=== PATIENT | female | born 1955 | race Caucasian/White ===

== ENCOUNTER → 2021-10-07 16:26 | Outpatient (CLI) | payer MEDICARE, SELFPAY ==
--- NOTE | ~2021-10-07 | MM_ITS ---
EXAMINATION: MM screening mirian BI w shandra HISTORY: Screening TECHNIQUE: Craniocaudal and mediolateral oblique 3-D tomosynthesis images were obtained and synthetic 2-D images were generated. CAD analysis was submitted and interpreted. COMPARISON: Comparison to multiple prior studies sequentially, with oldest reviewed study dated 04/24. BREAST PARENCHYMAL COMPOSITION: There are scattered areas of fibroglandular density. FINDINGS: There is no evidence of suspicious mass, calcification, or architectural distortion to sugg est malignancy in either breast. There has been no suspicious interval change. IMPRESSION: 1. No mammographic evidence of malignancy. 2. Recommend routine screening mammography in one year. BI-RADS Category 1: Negative Reviewed, dictated and finalized at location A.
== END ==
PROVIDERS: PCP Pediatrics; Visit Provider Obstetrics & Gynecology Gynecology
DX: Z12.31 Encounter for screening mammogram for malignant neoplasm of breast (principal)
CPT/HCPCS: 77063; 77067

== ENCOUNTER → 2022-06-02 09:22 | Outpatient (CLI) | payer MEDICARE, SELFPAY ==
--- NOTE | ~2022-06-02 | MMUS_ITS ---
EXAMINATION: MM diagnostic mirian RT w shandra, US breast RT complete HISTORY: Pain inferior to right nipple/areola TECHNIQUE: ML, MLO and CC 3-D tomosynthesis images of the right breast were performed and synthetic 2 -D images were generated. CAD analysis was submitted and interpreted. High resolution complete right breast ultrasound including all 4 quadrants and subareolar area was performed. COMPARISON: 10/07/2021, 02/22/2019 bilateral screening mammogram examinations BREAST PARENCHYMAL COMPOSITION: There are scattered areas of fibroglandular density. FINDINGS: MAMMOGRAPHIC FINDINGS: There is generalized increased prominence of fibroglandular stroma since the prior to screening mammo gram examinations. No suspicious mass or architectural distortion, malignant calcification, skin thickening or retractio n or significant new or developing density is detected. ULTRASOUND: Right breast subareolar area: 3.4 x 5 mm cyst No suspicious mass or shadowing of the right breast is detected. IMPRESSION: 1. Benign finding 2. Routine annual mammographic screening is recommended BI-RADS Category 2: Benign finding(s). Reviewed, dictated and finalized at location A. 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 Benign finding 2. Routine annual mammographic screening is recommended BI-RADS Category 2: Benign finding(s).
== END ==
PROVIDERS: PCP Advanced Practice Midwife; Visit Provider Advanced Practice Midwife
DX: N64.4 Mastodynia (principal)
CPT/HCPCS: 76641; 77061; 77065; G0279

== ENCOUNTER → 2023-03-08 12:20 | Outpatient (CLI) | payer MEDICARE, SELFPAY ==
--- NOTE | ~2023-03-08 | MM_ITS ---
EXAMINATION: MM screening mirian BI w shandra HISTORY: Screening mammogram TECHNIQUE: Craniocaudal and mediolateral oblique 3-D tomosynthesis images were obtained and synthetic 2-D images were generated. CAD analysis was submitted and interpreted. COMPARISON: June 02, 2022 diagnostic right mammogram and complete right breast ultrasound 09/29/2021, 02/22/2019 bilateral screening mammogram examinations BREAST PARENCHYMAL COMPOSITION: There are scattered areas of fibroglandular density. FINDINGS: Impression 5 mm low-density circumscribed opacity is suggested anteriorly in the upper mid right abdirizak st in the superior subareolar area. Diagnostic right mammogram and right breast ultrasound examinatio n are recommended. Otherwise there is no evidence of suspicious mass, calcification, or architectural distortion to sugg est malignancy in either breast. There has been no other suspicious interval change. IMPRESSION: 1. New 5 mm circumscribed opacity in the upper anterior mid right breast 2. Diagnostic right mammogram and right breast ultrasound examination are recommended. BI-RADS Category 0: Incomplete: Needs additional imaging evaluation. Reviewed, dictated and finalized at location A. STANT LIBRARIAN Impression 5 mm low-density circumscribed opacity is suggested anteriorly in th e upper mid right breast in the superior subareolar area. Diagnostic right mamm ogram and right breast ultrasound examination are recommended. Otherwise there is no evidence of suspicious mass, calcification, or architectu ral distortion to suggest malignancy in either breast. There has been no other suspicious interval change. IMPRESSION: 1. New 5 mm circumscribed opacity in the upper anterior mid right breast 2. Diagnostic right mammogram and right breast ultrasound examination are recom mended. BI-RADS Category 0: Incomplete: Needs additional imaging evaluation.
--- NOTE | ~2023-03-08 | DEXA_ITS ---
Bone Density Report Name: PAUL LYNN Age: 68 Sex: Female Ethnicity: White Date of : 1955 Indication: osteopenia; height loss; hysterectomy; postmenopausal Referring Provider: SUSAN BRIDGES Study: Bone densitometry was performed. Exam Date: March 08, 2023 Accession number: [id number] Bone Density: Region BMD T-score Z-score Classification AP Spine (L1-L4) 0.848 -1.8 0.1 Osteopenia Femoral Neck (Left) 0.672 -1.6 0.0 Osteopenia Total Hip (Left) 0.783 -1.3 0.0 Osteopenia Femoral Neck (Right) 0.748 -0.9 0.7 Normal Total Hip (Right) 0.798 -1.2 0.2 Osteopenia Total Hip Mean 0.791 -1.3 0.1 Osteopenia World Health Organization criteria for BMD impression classify patients as: Normal (T-score at or above -1.0), Osteopenia (T-score between -1.0 and -2.5), or Osteoporosis (T-score at or below -2.5). 10-year Fracture Risk(1): Major Osteoporotic Fracture 9.3% Hip Fracture 1.2% Reported Risk Factors: [place] (), Neck BMD=0.672, BMI=30.8 (1) FRAX(R) Version 3.08. Fracture probability calculated for an untreated patient. Fracture probability may be lower if the patient has received treatment. Previous Exams: Region Exam Age BMD T-score BMD Change BMD Change Date g/cm2 vs Baseline vs Previous AP Spine(L1-L4) 03/08/2023 68 0.848 -1.8 -0.075* 0.024* 02/22/2019 64 0.824 -2.0 -0.099* -0.102* 02/24/2012 57 0.927 -1.1 0.004 0.004 10/14/2009 54 0.923 -1.1 Total Hip(Left) 03/08/2023 68 0.783 -1.3 -0.013 0.005 02/22/2019 64 0.777 -1.3 -0.018 0.017 02/24/2012 57 0.761 -1.5 -0.035* -0.035* 10/14/2009 54 0.796 -1.2 Total Hip(Right) 03/08/2023 68 0.798 -1.2 -0.021 0.001 02/22/2019 64 0.797 -1.2 -0.022 0.003 02/24/2012 57 0.794 -1.2 -0.025 -0.025 10/14/2009 54 0.819 -1.0 *Denotes significance at 95% confidence level, LSC for AP Spine = 0.022 g/cm2, LSC for Total Hip = 0.027 g/cm2 Clinical Information Provided by Patient: Has used the following medications: Calcium, MTV, vit D included in calcium Has the following medical conditions: Hysterectomy Patient maximum height was 68 Menopause Age: 56 No regular weight bearing exercise Drinks caffeinated beverages Onset of menses at age 16 Number of children 2 I
== END ==
PROVIDERS: PCP Obstetrics & Gynecology Gynecology; Visit Provider Obstetrics & Gynecology Gynecology
DX: Z12.31 Encounter for screening mammogram for malignant neoplasm of breast (principal); Z78.0 Asymptomatic menopausal state; R92.8 Other abnormal and inconclusive findings on diagnostic imaging of breast; M85.88 Other specified disorders of bone density and structure, other site; M85.852 Other specified disorders of bone density and structure, left thigh; M85.851 Other specified disorders of bone density and structure, right thigh
CPT/HCPCS: 77063; 77067; 77080

== ENCOUNTER → 2023-03-31 09:02 | Outpatient (CLI) | payer MEDICARE, SELFPAY ==
--- NOTE | ~2023-03-31 | MMUS_ITS ---
EXAMINATION: MM diagnostic mirian RT w shandra, US breast RT limited HISTORY: New 5 mm circumscribed opacity in upper anterior mid right breast reported on 03/08/2023 scr eening mammogram examination TECHNIQUE: Additional 3-D tomosynthesis images of the right breast were performed and synthetic 2-D i mages were generated. CAD analysis was submitted and interpreted. High resolution targeted right suba reolar breast ultrasound was performed. COMPARISON: 03/08/2023 bilateral screening mammogram 06/02/2022 diagnostic right mammogram and complete right breast ultrasound examination 10/07/2021 bilateral screening mammogram FINDINGS: MAMMOGRAPHIC FINDINGS: An approximately 5 mm circumscribed opacity is noted in the superomedial subareolar area of the right breast near midline. The margins are circumscribed. No suspicious mass, architectural distortion, malignant calcification, skin thickening or retraction or significant new or developing density of the breast is noted otherwise. ULTRASOUND: 12:00 subareolar area: 3.8 x 6.1 x 6.7 mm parallel circumscribed sonolucency with through transmissio n posterior enhancement consistent with benign cyst. IMPRESSION: 1. Benign cyst at 12:00 subareolar area; no mammographic or sonographic evidence of malignancy 2. Routine annual mammographic screening is recommended. BI-RADS Category 2: Benign finding(s). Reviewed, dictated and finalized at location A. Y LEVEL DRAFTER IMPRESSION: 1. Benign cyst at 12:00 subareolar area; no mammographic or sonographic evidenc e of malignancy 2. Routine annual mammographic screening is recommended. BI-RADS Category 2: Benign finding(s).
== END ==
PROVIDERS: PCP Obstetrics & Gynecology Gynecology; Visit Provider Obstetrics & Gynecology Gynecology
DX: R92.8 Other abnormal and inconclusive findings on diagnostic imaging of breast (principal)
CPT/HCPCS: 76642; 77061; 77065; G0279

== ENCOUNTER 2024-03-13 10:05 | Outpatient (CLI) | payer MEDICARE, SELFPAY ==
--- NOTE | ~2024-03-13 | MM_ITS ---
EXAMINATION: MM screening mirian BI w shandra HISTORY: Screening TECHNIQUE: Craniocaudal and mediolateral oblique 3-D tomosynthesis images were obtained and synthetic 2-D images were generated. CAD analysis was submitted and interpreted. COMPARISON: Comparison to multiple prior studies sequentially, with oldest reviewed study dated 02/22. BREAST PARENCHYMAL COMPOSITION: Not dense: There are scattered areas of fibroglandular density. FINDINGS: There are new asymmetries in the upper outer quadrant of the right breast and upper aspect of the left breast on MLO view. There are no suspicious calcifications or architectural distortion. IMPRESSION: 1. New bilateral breast asymmetries. 2. Additional mammographic views and possible breast ultrasound are recommended. BI-RADS Category 0: Incomplete: Needs additional imaging evaluation. Reviewed, dictated and finalized at location B. 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 New bilateral breast asymmetries. 2. Additional mammographic views and possible breast ultrasound are recommended . BI-RADS Category 0: Incomplete: Needs additional imaging evaluation.
== END 2024-03-13 10:06 | disposition home or self-care (01) ==
LOC: MICIMG 10:07
PROVIDERS: PCP Pediatrics; Visit Provider Advanced Practice Midwife
DX: Z12.31 Encounter for screening mammogram for malignant neoplasm of breast (principal); R92.8 Other abnormal and inconclusive findings on diagnostic imaging of breast
CPT/HCPCS: 77063; 77067

== ENCOUNTER 2024-04-03 08:14 | Outpatient (CLI) | payer MEDICARE, SELFPAY ==
--- NOTE | ~2024-04-03 | MM_ITS ---
EXAMINATION TYPE: MM diagnostic mirian BI w shandra COMPARISON: 03/13/2024 and dating back to 10/07/2021 REASON FOR STUDY: Asymmetries described within the upper outer quadrant of the right breast in the u pper aspect of the left breast on MLO view only TECHNIQUE: Bilateral mediolateral oblique and true lateral views were obtained digitally with 3-D ma mmogram (digital breast tomosynthesis) with CAD. Computer-aided detection was utilized in evaluation of this examination. BREAST PARENCHYMAL COMPOSITION:Not Dense. There are scattered areas of fibroglandular density. FINDINGS: The asymmetry described within the upper outer quadrant of the right breast is unchanged dating back to 2021, and demonstrates benign features. The asymmetry within the upper aspect of the left breast effaces with spot compression for which no f urther follow-up is needed. There is no suspicious mass, architectural distortion, or suspicious micro-calcifications IMPRESSION: No mammographic or tomographic evidence to suggest the presence of malignancy. BI-RADS CATEGORY: 2: Benign findings RECOMMENDATION: Resumption of yearly mammography is recommended. Reviewed, dictated and finalized at location A. TRICAL TESTER
== END 2024-04-03 08:15 | disposition home or self-care (01) ==
LOC: MICIMG 08:14
PROVIDERS: PCP Pediatrics; Visit Provider Obstetrics & Gynecology Gynecology
DX: R92.8 Other abnormal and inconclusive findings on diagnostic imaging of breast (principal)
CPT/HCPCS: 77062; 77066; G0279